=== PATIENT | male | born 1965 | race Caucasian/White ===

== ENCOUNTER → 2017-03-01 | Outpatient (CLI) | payer BC ==
[~2017-03-01] MED LIST: ASPI325T45 PO; AZITTAB PO; GADAVIST IV PRN; HYDR0.75 PO; IBUP-1050 PO; NXM/40 PO
--- NOTE | 2017-03-01 13:39 | DIAGNOSTIC IMAGING REPORT ---
MRI brain BRAIN COMBO FOR IAC CLINICAL HISTORY: *W/IA C'S* BENIGN PAROXYSMAL POSITIONAL VERTIGO TECHNIQUE: Multiaxial MRI acquisition COMPARISON STUDY: 03/14/2015 FINDINGS: No evidence for an acute ischemic event. Minimal chronic small vessel change. Internal auditory canals are symmetric. No abnormal postcontrast enhancement enhancement. Moderate mucosal thickening right maxillary sinus. Sella and parasellar regions are unremarkable. IMPRESSION: 1. Moderate mucosal thickening right maxillary sinus. 2. Examination brain is otherwise negative. 3. The internal auditory canals are unremarkable. Electronically signed by: Rick Alarcon M.D. 03/01/2017 1:38 PM Dictated Date/Time: 03/01/2017 1:28 PM
== END | disposition home or self-care (01) ==
LOC: C.OPENMRI 12:15
PROVIDERS: ATTEND Physician Assistant
DX: H81.10 Benign paroxysmal vertigo, unspecified ear (principal)

== ENCOUNTER 2019-11-16 15:39 | Observation (INO) ==
[2019-11-16] MEDS ORDERED: SODIUM CHLORIDE 0.9% 1000ML 1,000 ML IV SCH (17:15)
[2019-11-16 17:29] LABS: Basophils # (auto) 0.02 K/uL (0-0.2); Basophils % (auto) 0.2 %; Eosinophils # (auto) 0.13 K/uL (0-0.5); Eosinophils % (auto) 1.5 %; Hematocrit (blood only) 44.1 % (42-52); Hemoglobin 15.2 g/dL (14.0-18.0); Immature Granulocytes # (auto) 0.03 K/uL (0.00-0.02); Immature Granulocytes % (auto) 0.3 %; Lymphocytes # (auto) 2.48 K/uL (1.2-3.4); Lymphocytes % (auto) 27.8 %; Mean Corpuscular Hemoglobin 30.3 pg (25-34); Mean Corpuscular Hgb Conc 34.5 g/dL (32-36); Mean Platelet Volume 10.1 fL (7.4-10.4); Monocytes # (auto) 0.49 K/uL (0.11-0.59); Monocytes % (auto) 5.5 %; Neutrophils # (auto) 5.78 K/uL (1.4-6.5); Neutrophils % (auto) 64.7 %; Platelet Count 216 K/uL (130-400); RDW Coefficient of Variation 12.8 % (11.5-14.5); RDW Standard Deviation 40.9 fL (36.4-46.3); Red Blood Count 5.01 M/uL (4.7-6.1); White Blood Count 8.93 K/uL (4.8-10.8)
--- NOTE | 2019-11-16 17:48 | CT Scan Report ---
CT head/brain wo con CLINICAL HISTORY: 54 years-old Male with double vision, ?subtle 6th nerve palsy. Acute double vision TECHNIQUE: Multiple axial CT images of the head were obtained without contrast. A dose lowering tech nique was utilized adhering to the principles of ALARA. CT DOSE: 537.48 mGy.cm COMPARISON: Head CT 05/13/2015 FINDINGS: No acute intracranial hemorrhage, midline shift, intracranial mass, hydrocephalus, territorial ischem ia or abnormal extra-axial collection. The calvarium is intact. Mastoid air cells are clear. Mild mucosal thickening of the nasal turbinate s and ethmoid air cells. IMPRESSION: No acute intracranial abnormality. ACT 112: Negative or not required by law. The above report was generated using voice recognition software. It may contain grammatical, syntax o r spelling errors. Electronically signed by: Antonio Iniguez M.D. 11/16/2019 5:46 PM
[2019-11-16 18:09] LABS: BUN Creatinine Ratio 16.3 (10-20); Creatinine Clr Calc Pharmacy 93.2 ml/min; Est GFR (African American) 84.6; Magnesium 2.4 mg/dl (1.8-2.4); Potassium 3.9 mmol/L (3.5-5.1)
[2019-11-16 18:20] LABS: Albumin Globulin Ratio 1.2 (0.9-2); Bilirubin,Total 0.5 mg/dl (0.2-1); Globulin 3.3 gm/dl (2.5-4.0); Thyroid Stimulating Hormone 1.61 uIu/ml (0.300-4.500); Total Protein 7.3 gm/dl (6.4-8.2)
[2019-11-16] MEDS ORDERED: ASPIRIN CHEW 324 MG PO STA (18:24)
--- NOTE | 2019-11-16 20:25 | History & Physical Report ---
Date of Service November 16, 2019 Assessment & Plan (1) Diplopia: 54 yo M with PMH Claustrophobia, GERD, b/l tinnitis, TIA (5-6 yrs ago), ?PFO presents from PCP office with concerns of L eye diploplia on horizontal movement. Sixth cranial nerve (abducens nerve) palsy -Admit to tele -Head CT: No acute intracranial abnormality -MRI w/wo contrast pending -In adults, the most common causes of sixth nerve palsy include vasculopathic risk factors (eg, HTN, DM), inflammation, trauma, tumors, and idiopathic cases -Other less likely DDx: Restrictive orbitopathy, Orbital myositis, Myasthenia gravis , Supranuclear disorders of gaze, convergence spasm, Sagging eye syndrome -ASA 81 mg daily -intranet specialist referral as an outpt. Appreciate CM assistance -ECHO pending -ESR/CRP to evaluate for potential giant cell arteritis -A1C, Lipid panel in AM -Spontaneous recovery is common in patients with unilateral, isolated, nontraumatic sixth nerve palsy. However, optho can discuss treatment modalities such as alternate patching, prism therapy, strabismus surgery, and/or botulinum toxin if sxs persists Claustrophobia -Buspirone 10 mg prn FEN/GI: HH Diet DVT Prophylaxis: Ambulation. Low Risk. Anticipate short hospitalization. Full Code Dispo: Med Tele. Appreciate CM assistance. History of Present Illness Chief Complaint: L eye diploplia Primary Care Provider: Bushra Rodriguez, DO 54 yo M with PMH Claustrophobia, GERD, b/l tinnitis, TIA (5-6 yrs ago), ?PFO, presents to [facility] by ways of PCP with concerns of diploplia. On 11/14 (Tues AM), pt noted some KELLEY, but no eye sxs. The next day (Wed), he noted some diploplia first noticed when he was driving as the yellow and white road lines appeared doubled in his L visual field. 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 Pt otherwise denies N/V, trauma, ataxia, facial palsy, eye blurriness, discharge, or pain, tunnel vision, worsening vision, blind spots, loss of peripheral vision. Pt only notices the double vision when he looks to the far left, otherwise no other visual distu rbances. Has not recently started any new medications or had dosage changes. Pt with no other acute concerns or complaints. Head CT: No acute intracranial abnormality EKG: NSR. When compared with ECG of 14-JUL-2016, No significant change was found ER Course: PO ASA 324 mg, NSS Labs Unremarkable Family Hx: Cousin/Aunt with DM. Father with stroke 5-6 yrs ago Social: Denies any tobacco or illicit drug use. Social drinker Surgical: arthroscopy of b/l knee, cholecystectomy, wisdom tooth extraction Allergies Allergy/AdvReac Type Severity Reaction Status Date / Time No Known Allergies Allergy Verified 11/16/19 17:32 Home Medications Home Medications Medication Instructions Recorded Confirmed Type buspirone 10 mg PO DAILY PRN 07/03/19 11/16/19 History esomeprazole magnesium 40 mg PO DAILY 07/03/19 11/16/19 History epinephrine [EpiPen 2-Yovani] 0.3 mg IM DIRECTED PRN 11/16/19 11/16/19 History Past Med/Surg History Medical History Claustrophobia GERD (gastroesophageal reflux disease) Heart abnormality pt states he "has a hole in his heart" Migraine Tinnitus of both ears Transient ischemic attack (TIA) 2012--no deficits Surgical History History of arthroscopy of left knee History of arthroscopy of right knee History of cholecystectomy History of colonoscopy History of esophagogastroduodenoscopy (EGD) History of tooth extraction History of wisdom tooth extraction Family History Daughter No problems noted. Father Family history of reaction to anesthesia difficulty waking Aunt Family history of diabetes mellitus Family/Other Family history of diabetes mellitus cousins Social History Preferred Language: Kiswahili Communication Ability: Effective Clinical Project Assistant Required: No Beliefs That Will Affect Care: None Current Living Situation: Spouse Current Living Situation Comment: Lives with and 2 kids Feels Safe at Home: Yes Safety Concerns: Feels Safe At This Time Smoking Status: Never smoker Second Hand Exposure: Yes (parents/grandparents smoked) ; Hx Alcohol Use: Yes Alcohol type: beer Hx Substance Use: No Physical Exam Constitutional: WD/WN, vitals as above Eyes: PERRL Horizontal diplopia with leftward gaze. No obvious gaze palsy when looking to the left. ENMT: external ear and nose normal, oropharynx normal Respiratory: normal respiratory effort, lungs clear to auscultation Cardiovascular: RRR, no murmur, no edema Gastrointestinal (Abdomen): normal bowel sounds, soft, nontender, no hepatosplenomegaly Skin: no rashes, warm and dry Neurologic: No focal deficits Psychiatric: A+Ox3, euthymic affect Results & Data Vital Signs (Past 12 Hours) Vital Signs Temp Pulse Resp BP Pulse Ox 11/16/19 19:31 75 19 96 11/16/19 19:30 66 15 127/100 97 11/16/19 19:01 76 19 99 11/16/19 19:00 72 15 148/108 H 99 11/16/19 18:31 71 18 100 11/16/19 18:30 75 20 158/114 H 98 11/16/19 18:01 71 14 99 11/16/19 18:00 68 16 145/109 H 99 11/16/19 17:51 68 18 98 11/16/19 17:47 68 19 132/102 H 99 11/16/19 16:06 36.8 C 93 H 18 153/103 H 96 Laboratory Results Laboratory Results - last 24 hr 11/16/19 11/16/19 Unknown Unknown WBC 8.93 RBC 5.01 Hgb 15.2 Hct 44.1 MCV 88.0 MCH 30.3 MCHC 34.5 RDW Std Deviation 40.9 RDW Coeff of Leodan 12.8 Plt Count 216 MPV 10.1 Immature Gran % (Auto) 0.3 Neut % (Auto) 64.7 Lymph % (Auto) 27.8 [place] % (Auto) 5.5 Eos % (Auto) 1.5 Baso % (Auto) 0.2 Immature Gran # (Auto) 0.03 H Neut # (Auto) 5.78 Lymph # (Auto) 2.48 [place] # (Auto) 0.49 Eos # (Auto) 0.13 Baso # (Auto) 0.02 Sodium 140 Potassium 3.9 Chloride 109 H Carbon Dioxide 27 Anion Gap 4.0 BUN 19 H Creatinine 1.14 Est Cr Clr Drug Dosing 93.2 Est GFR ( Amer) 84.6 Est GFR (Non-Af Amer) 73.0 BUN/Creatinine Ratio 16.3 Glucose 91 Calcium 9.0 Magnesium 2.4 Total Bilirubin 0.5 AST 16 ALT 27 Alkaline Phosphatase 45 Total Protein 7.3 Albumin 4.0 Globulin 3.3 Albumin/Globulin Ratio 1.2 TSH 1.610 Supervising Physician Co-Signing Physician Notes Patient was seen and examined by me personally. I reviewed the chart, the orders and discussed the case in detail with Dr. Titus Fox DO . I read this H&P and agree with its contents to entirety. Resident Activity Tracking Resident Involvement: Resident Care Provided Care Provided: Adult Hospital Medicine
[2019-11-16] MEDS ORDERED: ALUMINUM/MAGNESIUM SUSP 30 ML UDC PO PRN (22:44)
[2019-11-16] MEDS ORDERED: ACETAMINOPHEN 325 MG TAB PO PRN (22:44)
[2019-11-16] MEDS ORDERED: EPINEPHRINE ADULT AUTO-INJECT 0.3 MG SYR IM PRN (22:44)
[2019-11-16] MEDS ORDERED: ONDANSETRON INJ 2 MG/ML 2 ML VIAL IV PRN (22:44)
[2019-11-16] MEDS ORDERED: LORazepam 1 MG/2 ML VIAL IV STA (22:44)
[2019-11-17] MEDS ORDERED: GADOBUTROL 65ML VIAL IV PRN (00:34)
--- NOTE | 2019-11-17 00:42 | Emergency Department Note ---
Entered by Karie Alfaro acting as a scribe for Ashok Herrera MD History of Present Illness General Chief complaint: Visual Disturbance Stated complaint: DOUBLE VISION SENT BY DR RUIZ Time Seen by Provider: 11/16/19 16:47 Source: patient History of Present Illness Onset (ago): day(s) (yesterday) Location: eyes and left Pain Consistency: + intermittent Quality: + other (double vision) Associated symptoms: + denies other symptoms (trauma) and + headaches; no fever/chills and no nausea/vomiting The patient is a 54 year old male who presents to the Emergency Room with complaints of intermittent double vision in his left eye beginning yesterday. He notes the double vision is side by side. He notes it occurs when he looks too far to the left. The patient reports the double vision is worse in the mornings when driving to the work in the dark. The patient reports he received a formal eye exam yesterday from Dr. Gonzalez at [facility]. 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 He notes his PCP sent him to the ED. The patient notes having a headache two days ago. The patient denies wearing glasses and contact lenses. He denies fever, chills, nausea, vomiting, and trauma. The patient reports a history of a TIA a few years ago. Home Medications Home Medications Medication Instructions Recorded Confirmed Type buspirone 10 mg PO DAILY PRN 07/03/19 11/16/19 History esomeprazole magnesium 40 mg PO DAILY 07/03/19 11/16/19 History epinephrine [EpiPen 2-Yovani] 0.3 mg IM DIRECTED PRN 11/16/19 11/16/19 History Allergies Allergy/AdvReac Type Severity Reaction Status Date / Time No Known Allergies Allergy Verified 11/16/19 17:32 Past Med/Surg History Medical History Claustrophobia GERD (gastroesophageal reflux disease) Heart abnormality pt states he "has a hole in his heart" Migraine Tinnitus of both ears Transient ischemic attack (TIA) 2012--no deficits Surgical History History of arthroscopy of left knee History of arthroscopy of right knee History of cholecystectomy History of colonoscopy History of esophagogastroduodenoscopy (EGD) History of tooth extraction History of wisdom tooth extraction Family History Daughter No problems noted. Father Family history of reaction to anesthesia difficulty waking Aunt Family history of diabetes mellitus Family/Other Family history of diabetes mellitus cousins Social History Preferred Language: Hungarian Communication Ability: Effective Medical Hospital Sales Required: No Beliefs That Will Affect Care: None Current Living Situation: Spouse Current Living Situation Comment: Lives with and 2 kids Feels Safe at Home: Yes Safety Concerns: Feels Safe At This Time Smoking Status: Never smoker Second Hand Exposure: Yes (parents/grandparents smoked) ; Hx Alcohol Use: Yes Alcohol type: beer Hx Substance Use: No Review of Systems See HPI for pertinent positives & negatives. and A total of 10 systems reviewed and were otherwise negative Physical Exam Vital Signs Vital Signs - 24 hr 11/16/19 16:06 11/16/19 17:47 11/16/19 17:51 Temperature 36.8 C Temperature Source Oral Pulse Rate 93 H 68 68 Pulse Rate from SpO2 Sensor 68 68 Pulse Rhythm Regular Pulse Strength Normal Respiratory Rate 18 19 18 Respiratory Effort / Characteristics Non-Labored Spontaneous Respiratory Depth Normal Respiratory Pattern Regular Blood Pressure 153/103 H 132/102 H Blood Pressure Mean 119 117 Blood Pressure Position Sitting Pulse Oximetry 96 99 98 Oxygen Delivery Method Room Air Sepsis Recent Fever Within 48 Hours No Sepsis New/Unexplained Change in Mental Status No Sepsis Action Taken by Nursing No Action Required 11/16/19 18:00 11/16/19 18:01 11/16/19 18:30 Temperature Temperature Source Pulse Rate 68 71 75 Pulse Rate from SpO2 Sensor 69 72 75 Pulse Rhythm Pulse Strength Respiratory Rate 16 14 20 Respiratory Effort / Characteristics Respiratory Depth Respiratory Pattern Blood Pressure 145/109 H 158/114 H Blood Pressure Mean 114 119 Blood Pressure Position Pulse Oximetry 99 99 98 Oxygen Delivery Method Sepsis Recent Fever Within 48 Hours Sepsis New/Unexplained Change in Mental Status Sepsis Action Taken by Nursing 11/16/19 18:31 11/16/19 19:00 11/16/19 19:01 Temperature Temperature Source Pulse Rate 71 72 76 Pulse Rate from SpO2 Sensor 70 70 75 Pulse Rhythm Pulse Strength Respiratory Rate 18 15 19 Respiratory Effort / Characteristics Respiratory Depth Respiratory Pattern Blood Pressure 148/108 H Blood Pressure Mean 118 Blood Pressure Position Pulse Oximetry 100 99 99 Oxygen Delivery Method Sepsis Recent Fever Within 48 Hours Sepsis New/Unexplained Change in Mental Status Sepsis Action Taken by Nursing 11/16/19 19:30 11/16/19 19:31 11/16/19 20:00 Temperature Temperature Source Pulse Rate 66 75 71 Pulse Rate from SpO2 Sensor 68 75 70 Pulse Rhythm Pulse Strength Respiratory Rate 15 19 21 Respiratory Effort / Characteristics Respiratory Depth Respiratory Pattern Blood Pressure 127/100 133/106 H Blood Pressure Mean 108 112 Blood Pressure Position Pulse Oximetry 97 96 97 Oxygen Delivery Method Sepsis Recent Fever Within 48 Hours Sepsis New/Unexplained Change in Mental Status Sepsis Action Taken by Nursing 11/16/19 20:01 11/16/19 20:30 11/16/19 20:31 Temperature Temperature Source Pulse Rate 73 71 70 Pulse Rate from SpO2 Sensor 74 72 72 Pulse Rhythm Pulse Strength Respiratory Rate 18 24 19 Respiratory Effort / Characteristics Respiratory Depth Respiratory Pattern Blood Pressure 133/94 Blood Pressure Mean 98 Blood Pressure Position Pulse Oximetry 97 96 97 Oxygen Delivery Method Sepsis Recent Fever Within 48 Hours Sepsis New/Unexplained Change in Mental Status Sepsis Action Taken by Nursing GENERAL: Well appearing, well nourished, NAD, non-toxic. EYE EXAM: Normal conjunctiva. PERRL, no anisocoria and EOM's grossly intact w/o pain. Horizontal diplopia with leftward gaze. No obvious gaze palsy when looking to the left. No vision field deficits. Vision 20/25 on right; 20/20 on left. OROPHARYNX: Moist mucous membranes. Grossly normal dentition. NECK: Supple, no nuchal rigidity, no adenopathy, non-tender. No signs of meningismus. LUNGS: Clear to auscultation. Normal chest wall mechanics. HEART: NSR, no MRG. ABDOMEN: Abdomen soft, non-tender, normo-active bowel sounds, no masses, no rebound or guarding. BACK: No CVA TTP. SKIN: No rashes and no bruising. UPPER EXTREMITIES: Upper extremities are grossly normal. LOWER EXTREMITIES: No pitting edema. No calf pain. NEURO EXAM: A&O x3, cranial nerves II-XII grossly intact, normal speech, , moves all 4 extremities on command w/o issue. Course Course 165: Past medical records reviewed. The patient was evaluated in room B05. A complete history and physical exam was performed. 1706: I tried to contact Dr. Gonzalez however he was not available. 1740: I spoke with Dr. Alexandra - [facility] Neurology who recommends the patient stay in the hospital for a stroke workup. 1830: I reviewed the patient's case with Dr. Ya - [facility] Hospitalist. She will evaluate the patient for further management. Administered Medications Gadobutrol (Gadavist 65ml) 11.1 ml IV ONCE PRN PRN Reason: Interaction Checking Stop: 11/21/19 00:33 Last Admin: 11/17/19 00:07 Dose: 11.1 ml Documented by: [id number] Discontinued Medications Aspirin (Aspirin) 324 mg PO NOW STA Stop: 11/16/19 18:25 Last Admin: 11/16/19 18:27 Dose: 324 mg Documented by: [id number] Sodium Chloride (Nss 1000ml) 1,000 mls @ 999 mls/hr IV .Q1H1M JB Stop: 11/16/19 18:15 Last Infusion: 11/16/19 18:19 Dose: 0 mls/hr Documented by: [id number] Admin: 11/16/19 17:18 Dose: 999 mls/hr Documented by: [id number] Lorazepam (Ativan) 1 mg in 2 mls @ 2 mls/min IV NOW STA Stop: 11/16/19 22:45 Last Admin: 11/16/19 23:21 Dose: 2 mls/min Documented by: [id number] Medical Decision Making Differential Diagnosis Differential diagnosis: hyperglycemia, metabolic abnormalities, neuropathy, stroke, arteriostenosis Medical Records Attestation: I reviewed the patient's medical records. Home Medications Current Medication List: was personally reviewed by me Laboratory Data Attestation: I reviewed the patient's lab results. Result diagrams: 11/16/19 Unknown 11/16/19 Unknown Lab Results 11/16/19 11/16/19 Range/Units Unknown Unknown WBC 8.93 (4.8-10.8) K/uL RBC 5.01 (4.7-6.1) M/uL Hgb 15.2 (14.0-18.0) g/dL Hct 44.1 (42-52) % MCV 88.0 (80-100) fL MCH 30.3 (25-34) pg MCHC 34.5 (32-36) g/dL RDW Std Deviation 40.9 (36.4-46.3) fL RDW Coeff of Leodan 12.8 (11.5-14.5) % Plt Count 216 (130-400) K/uL MPV 10.1 (7.4-10.4) fL Immature Gran % (Auto) 0.3 % Neut % (Auto) 64.7 % Lymph % (Auto) 27.8 % [place] % (Auto) 5.5 % Eos % (Auto) 1.5 % Baso % (Auto) 0.2 % Immature Gran # (Auto) 0.03 H (0.00-0.02) K/uL Neut # (Auto) 5.78 (1.4-6.5) K/uL Lymph # (Auto) 2.48 (1.2-3.4) K/uL [place] # (Auto) 0.49 (0.11-0.59) K/uL Eos # (Auto) 0.13 (0-0.5) K/uL Baso # (Auto) 0.02 (0-0.2) K/uL Sodium 140 (136-145) mmol/L Potassium 3.9 (3.5-5.1) mmol/L Chloride 109 H (98-107) mmol/L Carbon Dioxide 27 (21-32) mmol/L Anion Gap 4.0 (3-11) BUN 19 H (7-18) mg/dl Creatinine 1.14 (0.6-1.4) mg/dl Est Cr Clr Drug Dosing 93.2 ml/min Est GFR ( Amer) 84.6 Est GFR (Non-Af Amer) 73.0 BUN/Creatinine Ratio 16.3 (10-20) Glucose 91 (70-99) mg/dl Calcium 9.0 (8.5-10.1) mg/dl Magnesium 2.4 (1.8-2.4) mg/dl Total Bilirubin 0.5 (0.2-1) mg/dl AST 16 (15-37) U/L ALT 27 (12-78) U/L Alkaline Phosphatase 45 (45-117) U/L Total Protein 7.3 (6.4-8.2) gm/dl Albumin 4.0 (3.4-5.0) gm/dl Globulin 3.3 (2.5-4.0) gm/dl Albumin/Globulin Ratio 1.2 (0.9-2) TSH 1.610 (0.300-4.500) uIu/ml Imaging Data Radiologist's Impression: Radiology results as stated below per my review and the radiologist's interpretation: CT head/brain wo con CLINICAL HISTORY: 54 years-old Male with double vision, ?subtle 6th nerve palsy. Acute double vision TECHNIQUE: Multiple axial CT images of the head were obtained without contrast. A dose lowering technique was utilized adhering to the principles of ALARA. CT DOSE: 537.48 mGy.cm COMPARISON: Head CT 05/13/2015 FINDINGS: No acute intracranial hemorrhage, midline shift, intracranial mass, hydrocephalus, territorial ischemia or abnormal extra-axial collection. The calvarium is intact. Mastoid air cells are clear. Mild mucosal thickening of the nasal turbinates and ethmoid air cells. IMPRESSION: No acute intracranial abnormality. ACT 112: Negative or not required by law. The above report was generated using voice recognition software. It may contain grammatical, syntax or spelling errors. Electronically signed by: Antonio Iniguez M.D. 11/16/2019 5:46 PM ECG Data Attestation: I personally reviewed and interpreted this ECG as follows: Indication: + other (stroke workup) Rate (beats per minute): 69 Rhythm: + normal sinus ECG [place]: + Normal ECG Findings: + Other (normal intervals; no ST changes); no PACs and no PVCs Blood Pressure Blood Pressure Findings: Elevated blood pressure Blood Pressure Disposition: further management by hospitalist [facility] Narrative The patient is a 54 year old male who presents to the Emergency Room with complaints of intermittent double vision in his left eye beginning yesterday. Patient was seen and evaluated the bedside. Patient was referred due to concern for double vision. The patient does complain of horizontal diplopia. This is only when looking to the left. There is no obvious 6th nerve palsy but likely etiology. The patient does not have any other focal findings on exam. Patient did have blood work completed along with an EKG. No signs of arrhythmia or A. fib. Blood work is unremarkable. Patient has normal blood glucose. I did attempt to speak with the patient's eye doctor who had done an exam yesterday. I was unable to reach him. Patient does not have any anisocoria no APD and the patient has no visual field deficits. Patient's gross vision is otherwise intact and is 2024 in the right and 20/20 on the left. I did speak with the on- call neurologist who recommended a more detailed and thorough stroke work-up. Patient was given 324 of aspirin I did speak the on-call hospitalist agreed to further evaluate treat the patient. Patient was subsequently admitted to the medicine service. Impression & Plan Abducens (sixth) nerve palsy, Double vision, History of TIA (transient ischemic attack) Discharge Plan Visit Data *Final* Discharge Date/Time: 11/16/19 22:17 Chief Complaint: Visual Disturbance Stated Complaint: DOUBLE VISION SENT BY DR RUIZ ED Provider: Ashok Herrera Discharge Problem: Abducens (sixth) nerve palsy, Double vision, History of TIA (transient ischemic attack) Patient Disposition: Admitted As Inpatient Discharge Instructions Interventions: ED Discharge Assessment Last Done: 11/16/19 22:17 Discharge Problem: Abducens (sixth) nerve palsy Qualifiers: Laterality: left Qualified Code(s): H49.22 - Sixth [abducent] nerve palsy, left eye The scribe's documentation has been prepared under my direction and personally reviewed by me in its entirety. I confirm that the note above accurately reflects all work, treatment, procedures, and medical decision making performed by me.
--- NOTE | 2019-11-17 03:50 | Billing Data ---
Date of Service November 16, 2019 Coding Level of Care Code 62527 OBS Care - Level 2
--- NOTE | 2019-11-17 06:19 | Magnetic Resonance Report ---
MR brain wo/w con CLINICAL HISTORY: 6th nerve palsy, r/o masses COMPARISON STUDY: No previous studies for comparison. TECHNIQUE: Utilizing a 1.5 Katrin magnet and dedicated coil, multiplanar, multiecho imaging of the br ain was performed pre and postcontrast administration. IV administration of a mL of Gadavist contras t was uneventful. FINDINGS: Diffusion-weighted images are normal. Signal characteristics of the cerebellar as well as c erebral hemispheres are within normal limits. Ventricular system is midline. No abnormal postcontrast enhancement. IMPRESSION: Normal study. No change from the prior exam. ACT 112: Negative or not required by law. The above report was generated using voice recognition software. It may contain grammatical, syntax or spelling errors. Electronically signed by: Rick Alarcon M.D. 11/17/2019 6:18 AM
[2019-11-17 06:29] LABS: Basophils # (auto) 0.02 K/uL (0-0.2); Basophils % (auto) 0.3 %; Eosinophils # (auto) 0.17 K/uL (0-0.5); Eosinophils % (auto) 2.2 %; Hematocrit (blood only) 40.8 % (42-52); Hemoglobin 14.1 g/dL (14.0-18.0); Immature Granulocytes # (auto) 0.04 K/uL (0.00-0.02); Immature Granulocytes % (auto) 0.5 %; Lymphocytes # (auto) 2.05 K/uL (1.2-3.4); Lymphocytes % (auto) 26.3 %; Mean Corpuscular Hemoglobin 30.6 pg (25-34); Mean Corpuscular Hgb Conc 34.6 g/dL (32-36); Mean Corpuscular Volume 88.5 fL (80-100); Monocytes % (auto) 7.7 %; Neutrophils # (auto) 4.91 K/uL (1.4-6.5); Platelet Count 187 K/uL (130-400); RDW Coefficient of Variation 12.9 % (11.5-14.5); Red Blood Count 4.61 M/uL (4.7-6.1); White Blood Count 7.79 K/uL (4.8-10.8)
[2019-11-17 07:00] LABS: BUN Creatinine Ratio 16.4 (10-20); Calcium 8.3 mg/dl (8.5-10.1); Creatinine Clr Calc Pharmacy 99.4 ml/min; Est GFR (African American) 93.5; Est GFR (Non-African American) 80.7
[2019-11-17 07:02] LABS: Estimated Average Glucose 105 mg/dl; Hemoglobin A1C 5.3 % (4.5-5.6)
[2019-11-17 07:03] LABS: C Reactive Protein 0.62 mg/dl (0-0.29)
[2019-11-17] MEDS ORDERED: PANTOprazole 40 MG TAB PO SCH (09:00)
[2019-11-17] MEDS ORDERED: ASPIRIN 81 MG ECTAB PO SCH (09:00)
[2019-11-17] MEDS ORDERED: OPTIRAY 320 125ml IV PRN (09:34)
--- NOTE | 2019-11-17 09:52 | CT Scan Report ---
CT ANGIOGRAM OF THE BRAIN; CT ANGIOGRAM OF THE NECK CLINICAL HISTORY: Left-sided diplopia. COMPARISON STUDY: CT and MRI of the brain dated 11/16/2019. TECHNIQUE: Following the IV administration of 119 of Optiray 320, CT angiogram of the head and neck w as performed from the aortic arch to the vertex. Images are reviewed in the axial, sagittal, and sebastian nal planes. 3-D MIPS images are created and assessed. IV contrast was administered without complicati on. All measurements were calculated based on NASCET criteria. A dose lowering technique was utilize d adhering to the principles of ALARA. CT DOSE: 655.88 mGy.cm FINDINGS: Brain parenchyma: The brain parenchyma is normal in appearance. There is no hemorrhage, mass effect, or evidence of acute territorial ischemia by CT criteria. There is no evidence of enhancing mass lesi on on the angiogram phase images. The ventricles, sulci, and cisterns are normal in configuration. Gr ay-white matter differentiation is preserved. No extra-axial fluid collection is seen. Thoracic aorta: Visualized portions of the thoracic aorta are normal in caliber. The aortic arch demo nstrates standard 3-vessel anatomy. Right carotid arterial system: The right common carotid artery is widely patent, as are the right int ernal and external carotid arteries. Mild plaque is noted in the carotid bulb. Left carotid arterial system: The left common carotid artery is widely patent, as are the left customer marketing intern al and external carotid arteries. Soft plaque is noted in the distal common carotid artery as well as the carotid bulb. Vertebral arteries: The vertebral arteries are patent bilaterally noting left-sided dominance. Subclavian arteries: Widely patent bilaterally. Intracranial vasculature: The internal carotid arteries are patent at the skull base, as are the ante rior and middle cerebral arteries bilaterally. The vertebrobasilar system and posterior cerebral daisy prasanna are widely patent. The left vertebral artery is dominant. The right vertebral artery terminates as the PICA. There is no aneurysm, high-grade stenosis, or focal vessel cut off seen throughout the i ntracranial circulation. Jugular veins: Patent bilaterally. Dural sinuses: Patent. Lung apices: Partially visualized upper lobe lung parenchyma appears clear. Soft tissues: The visualized pharyngeal soft tissues are normal in appearance noting angiographic pha se technique. The oropharyngeal airway appears widely patent. The salivary and thyroid glands are nor mal in appearance. No cervical lymphadenopathy is seen. Skeletal structures: The calvarium appears intact. The cervical spine is maintained noting multilevel spondylosis. No lytic or blastic lesion is seen. Sinuses and mastoids: There are tiny retention cysts in the maxillary antra which measure up to 10 mm . The paranasal sinuses are otherwise clear. The mastoid air cells are well pneumatized. IMPRESSION: 1. There is no hemorrhage, mass effect, or evidence of acute territorial ischemia by CT criteria noti ng angiographic phase technique. 2. Unremarkable CT angiogram of the brain. 3. Unremarkable CT angiogram of the neck. ACT 112: Negative or not required by law. Electronically signed by: Torsten Tillman M.D. 11/17/2019 9:50 AM
--- NOTE | 2019-11-17 10:34 | Discharge Summary ---
Date of Service November 17, 2019 Admission HPI Per Admitting Provider 54 yo M with PMH Claustrophobia, GERD, b/l tinnitis, TIA (5-6 yrs ago), ?PFO, presents to [facility] by ways of PCP with concerns of diploplia. On 11/14 (Tues AM), pt noted some KELLEY, but no eye sxs. The next day (Wed), he noted some diploplia first noticed when he was driving as the yellow and white road lines appeared doubled in his L visual field. He went to his resolute professional who referred him to his PCP, whom he say today and was referred to the ER. Pt otherwise denies N/V, trauma, ataxia, facial palsy, eye blurriness, discharge, or pain, tunnel vision, worsening vision, blind spots, loss of peripheral vision. Pt only notices the double vision when he looks to the far left, otherwise no other visual disturbances. Has not recently started any new medications or had dosage changes. Pt with no other acute concerns or complaints. Head CT: No acute intracranial abnormality EKG: NSR. When compared with ECG of 14-JUL-2016, No significant change was found ER Course: PO ASA 324 mg, NSS Labs Unremarkable Family Hx: Cousin/Aunt with DM. Father with stroke 5-6 yrs ago Social: Denies any tobacco or illicit drug use. Social drinker Surgical: arthroscopy of b/l knee, cholecystectomy, wisdom tooth extraction Admission Exam Per Admitting Provider Constitutional: WD/WN, vitals as above Eyes: PERRL Horizontal diplopia with leftward gaze. No obvious gaze palsy when looking to the left. ENMT: external ear and nose normal, oropharynx normal Respiratory: normal respiratory effort, lungs clear to auscultation Cardiovascular: RRR, no murmur, no edema Gastrointestinal (Abdomen): normal bowel sounds, soft, nontender, no hepatosplenomegaly Skin: no rashes, warm and dry Neurologic: No focal deficits Psychiatric: A+Ox3, euthymic affect Principal Diagnosis L sided diplopia Discharge Exam Constitutional WD/WN, vitals as above + obese Eyes PERRL, conjunctivae normal, anicteric sclerae normal visual wing by confrontation, normal accommodation and EOM intact bilaterally (movements not painful); no nystagmus and no photophobia No ptosis. No extraorbital swelling or erythema. No eye discharge. +Diplopia reported in L left with L horizontal gaze ENMT external ear and nose normal, oropharynx normal Neck normal visual inspection and trachea midline Respiratory normal respiratory effort, lungs clear to auscultation Cardiovascular RRR, no murmur, no edema Heart Sounds: normal S1 and normal S2 Skin no rashes, warm and dry Neurologic moves all extremities; no focal motor deficits Speech / Cognition: normal speech Motor/Sensory: no tremor and no pronator drift Cranial Nerves: normal facial strength, tongue midline, normal hearing, able to rotate head bilaterally and able to elevate shoulders bilaterally Psychiatric A+Ox3, euthymic affect Discharge Data Allergies Allergy/AdvReac Type Severity Reaction Status Date / Time No Known Allergies Allergy Verified 11/16/19 17:32 Consultations 11/16/19 18:42 ED Decision to Admit Stat 11/16/19 22:44 Consult Case Management - Discharge Planning Routine Ordered Studies 11/16/19 17:01 CT head/brain wo con Stat 11/16/19 22:44 MR brain wo/w con Urgent 11/17/19 08:50 CT angio head w con Routine CT angio neck with con Routine Hospital Course (1) Diplopia: 54 yo M with PMHx TIA (5-6 yrs ago) was admitted for evaluation of L eye diplopia with L horizontal gaze. Mr. Ramirez was admitted for evaluation of L eye diplopia with horizontal gaze to the L that began one day prior to admission. The diplopia was preceded by a headache that self-resolved, however the diplopia persisted when provoked with L horizontal gaze throughout his hospital stay. Mr. Ramirez does report a history of migraine headaches, but denies associated visual aura. He had no other associated neurologic symptoms with the unilateral diplopia. Given his history of TIA and a new neurologic symptom, a full stroke work up was done. Head CT was negative. Brain MRI with and without contrast was unremarkable. CTA of head and neck was unremarkable. Echocardiogram obtained, read pending at discharge. HbA1c was 5.3. Lipid panel: total chol 166, LDL 114, HDL 36, ratio of 5. We recommend ed Mr. Ramirez start statin therapy, but he declined. Alternatively, he was interested in taking supplements of red yeast rice, which is known to have the same lipid lowering properties of statins. He does take a daily baby aspirin, which we recommend he continue. An ESR was drawn to assess for possible giant cell arteritis, but was normal at 2. CRP was mildly elevated at 0.62. Lyme titers pending at time of discharge. Hospital showcase trimmer were able to arrange an outpatient visit with ops manager Dr. Alejandro Rick at [facility] at 2:00pm on the day of discharge. Outpatient items to do: Repeat lipid panel in 6 months. Follow up on Echo results. Total Time Total Time Spent Total Time Spent (In Minutes): see attending attestation Discharge Plan Discharge Items Patient Disposition: Home - Self-Care Reason For Visit: 6 CN PALSY Discharge Diagnosis: Left eye diplopia Activity: Resume your previous activity Non-emergency contact: Primary Care Provider and Survey Project Manager Call non-emergency contact if: your symptoms worsen Follow-up/Referrals: Bushra Rodriguez DO [Primary Care Provider] - 11/23/19 7:50 am (Please, follow up with Dr. Rodriguez on November 23 at 7:50 am. *If you need to change this appointment, call the office at [phone].) Alejandro Rick MD [Physician] - 11/17/19 2:00 pm ([facility] Please, follow up with Dr. Blackmon TODAY at 2:00 pm. *If you have any questions, call his office at [phone].) Diet: Heart Healthy Addtl Attending Provider Instructions: You were hospitalized at [facility] for evaluation of double vision in your L eye when looking to the left. We were concerned that this sy mptom could represent a stroke - however the tests we ordered showed no evidence of stroke. The tests ordered included a cat scan of the head, a brain MRI, a CT-angiogram, which visualizes the blood vessels in the head and neck, an echocardiogram, or ultrasound of your heart. Although we did not find an explanation for your double vision, we have ruled out stroke as a possible cause. We recommend you see Dr. Alejandro Rick (ops manager) at [facility] for follow up care. Risk factors for stroke include high blood pressure, high cholesterol, high blood sugar, and tobacco use. Your blood pressure was only mildly elevated during your hospital stay. Your blood sugar was normal. Your cholesterol panel was also high. We recommended you start a medication known as a "statin" to help lower your cholesterol, but you declined this medication. As an alternative you can take supplements of red yeast rice, which can help lower your cholesterol. Low fat diet and regular exercise can also improve your blood pressure and your cholesterol level. you should have your cholesterol level rechecked by our primary care doctor in 3-6 months. Please continue to abstain from tobacco use. Pending Studies at Discharge: Yes Studies:: Lyme titers Stand-Alone Forms: My [facility] [employer], Smoking Cessation Medications and DC Order Prescriptions: Continued epinephrine [EpiPen 2-Yovani] 0.3 mg/0.3 mL auto-injector 0.3 mg IM DIRECTED PRN (Reason: Anaphylaxis) RF: 0 esomeprazole magnesium 40 mg capsule,delayed release(DR/EC) 40 mg PO DAILY RF: 0 buspirone 10 mg tablet 10 mg PO DAILY PRN (Reason: Anxiety) RF: 0 Discharge Orders: Discharge Order (Routine); Ordered 11/17/19 Ordered By: Lula Albarran Admission Data Admit Date/Time: 11/16/19 20:46 Attending Provider: Raisa Carballo Admit Provider: Titus Fox Primary Care Provider: Bushra Rodriguez Other Providers: Merna Ya Keith D. Other Interventions: Discharge Summary Assessment (RN) Last Done: 11/17/19 10:56 DC Date/Time DO NOT enter until pt leaves facility: 11/17/19 12:56 Supervising Physician Co-Signing Physician Notes Resident Physician Supervision Note: I independently interviewed and examined the patient and verified the sanchez history and physical, reviewed labs and image studies, discussed the case with the resident Dr. Albarran and agree with the findings and care plan. Time spent in discharge 35 min Resident Activity Tracking Resident Involvement: Resident Care Provided Care Provided: Adult Hospital Medicine
[2019-11-17 11:24] LABS: Lyme Ab IgG w/WB Rflx Negative (Negative); Lyme Ab IgM w/WB Rflx Negative (Negative)
--- NOTE | 2019-11-17 11:24 | Electrocardiogram Report ---
Test Reason : Blood Pressure : / mmHG Vent. Rate : 069 BPM Atrial Rate : 069 BPM P-R Int : 172 ms QRS Dur : 092 ms QT Int : 384 ms P-R-T Axes : 048 053 029 degrees QTc Int : 411 ms Normal sinus rhythm Normal ECG When compared with ECG of 14-JUL-2016 07:37, No significant change was found Confirmed by Aj Schmidt ([id number]) on 11/17/2019 11:23:38 AM Referred By: Bushra Rodriguez Confirmed By:Aj Schmidt
== END 2019-11-17 12:56 | disposition home or self-care (01) ==
LOC: ED 15:39 → 2S 15:39 → SUATTDRO 20:46 → 2S 22:17

== ENCOUNTER 2021-11-07 17:31 | Inpatient (IN) ==
[2021-11-07] MEDS ORDERED: SODIUM CHLORIDE 0.9% 1000ML 1,000 ML IV ONE (17:38)
--- NOTE | 2021-11-07 17:41 | Emergency Department Note ---
Impression & Plan COVID, Breath shortness, Thrombocytopenia ED Provider Note NAME: LIEN GAY AGE: 56 SEX: M : 1965 ARRIVES VIA: Ambulance INFORMANT: Patient ED PROVIDER(S): Darek Holcomb DO CHIEF COMPLAINT: Upper respiratory symptoms HPI: Patient is a 55-year-old male who symptoms started about a week ago with cough, congestion, and headache. He has intermittent chills. He does admit to shortness of breath. He has pain in his belly only with coughing. Denies any other belly pain, nausea, vomiting, or diarrhea. No dysuria, urgency, or frequency. He notes he feels very dehydrated. He has not been around anyone that has been sick. He denies any other exacerbating or remitting factors ROS: See above HPI for pertinent positives & negatives. A total of 10 systems reviewed and were otherwise negative. PAST MEDICAL HISTORY:See Below PAST SURGICAL HISTORY:See Below FAMILY HISTORY:See Below SOCIAL HISTORY:See Below HOME MEDICATIONS:See Below ALLERGIES:See Below VITALS:See Below PHYSICAL EXAMINATION: GENERAL: Sitting up in bed, alert, chronically ill-appearing, disheveled EYE EXAM: normal conjunctiva. OROPHARYNX: no exudate, no erythema, lips, buccal mucosa, and tongue normal and mucous membranes are moist NECK: supple, no nuchal rigidity, no adenopathy, non-tender LUNGS: Clear to auscultation. Normal chest wall mechanics HEART: no murmurs, S1 normal and S2 normal ABDOMEN: abdomen soft, non-tender, normo-active bowel sounds, no masses, no rebound or guarding. UPPER EXTREMITIES: upper extremities are grossly normal. LOWER EXTREMITIES: No pitting edema. NEURO EXAM: Normal sensorium, cranial nerves II-XII grossly intact, normal speech, no gross weakness of arms, no gross weakness of legs. MEDICAL DECISION MAKING: Patient is a 56-year-old male who presents ER found be febrile, tachycardic and slightly hypoxic. He was hypoxic for EMS at 87% on room air. Upon arrival here he dipped into 88 on room air with movement from bed to bed but then this increased back to 92 to 93%. IV was established blood work was obtained. Labs show no significant leukocytosis or anemia. Mild thrombocytopenia at 121. BMP LFTs bilirubin was unremarkable. Troponin was negative. Lipase was unremarkable. Patient was Covid positive. Chest x-ray with subtle infiltrates at the bases. He was given Decadron and fluids. He was updated bedside. He was given Tylenol. Discussed with hospitalist admitted for further work-up. Triage Nursing notes reviewed. Limited review of prior medical records performed Vital Signs: reviewed and remarkable for no significant abnormalities Differential diagnosis: Differential diagnoses includes but is not limited to pneumonia, bronchitis, COPD/Asthma exacerbation, pneumothorax, pulmonary embolism, congestive heart failure, acute coronary syndrome ER treatment provided: See below Diagnostics interpreted by me: ECG: Sinus tachycardia rate 107 Normal axis No PVCs Nonspecific ST wave changes in V2 through V6 QTC prolonged at 656 Cardiac Monitoring: An order was placed for continuous cardiac monitoring. The monitor shows a rate of 105 with sinus rhythm. Laboratory studies: As stated above and show below. Imaging studies: Portable AP upright 1 view of the chest shows questionable patchy infiltrates bilaterally Consultation(s): Discussed with hospitalist for further evaluation Procedures: none Past Med/Surg History Medical History (Updated 11/07/21 @ 19:49 by Darek Holcomb DO) Claustrophobia GERD (gastroesophageal reflux disease) Heart abnormality pt states he "has a hole in his heart" Migraine Tinnitus of both ears Transient ischemic attack (TIA) 2012--no deficits Surgical History History of arthroscopy of left knee History of arthroscopy of right knee History of cholecystectomy History of colonoscopy History of esophagogastroduodenoscopy (EGD) History of tooth extraction History of wisdom tooth extraction Family History Daughter No problems noted. Father Family history of reaction to anesthesia difficulty waking Aunt Family history of diabetes mellitus Family/Other Family history of diabetes mellitus cousins Social History Smoking Status: Never smoker Second Hand Exposure: Yes (parents/grandparents smoked); Hx Alcohol Use: Yes Alcohol type: beer Hx Substance Use: No Preferred Language: Tamazight Communication Ability: Effective Sap Ppm Consultant Required: No Beliefs That Will Affect Care: None Current Living Situation: Spouse Current Living Situation Comment: Lives with and 2 kids Feels Safe at Home: Yes Assistive Devices: Glasses Allergies Allergies Allergy/AdvReac Type Severity Reaction Status Date / Time No Known Allergies Allergy Verified 11/07/21 18:37 Home Meds Home Medications Medication Instructions Recorded Confirmed esomeprazole magnesium 40 mg 40 mg PO [facility] 07/03/19 11/07/21 capsule,delayed release epinephrine 0.3 mg/0.3 mL 0.3 mg IM DIRECTED PRN 11/16/19 11/07/21 injection, auto-injector (EpiPen 2-Yovani) escitalopram oxalate 20 mg tablet 10 mg PO [facility] 11/07/21 11/07/21 ketoconazole 2 % topical cream 1 applic TOPICAL [facility] 11/07/21 11/07/21 terbinafine HCl 250 mg tablet 250 mg PO [facility] 11/07/21 11/07/21 Results & Data (ED) Vital Signs Vital Signs - 24 hr 11/07/21 17:38 11/07/21 18:00 11/07/21 18:30 Temperature 38.9 C H Temperature Source Oral Pulse Rate 112 H 112 H 101 H Pulse Rate from SpO2 Sensor 112 H 100 H Respiratory Rate 22 Blood Pressure 186/119 H 128/87 Blood Pressure Mean 141 100 Pulse Oximetry 91 92 94 Oxygen Delivery Method Room Air Room Air Room Air Sepsis Recent Fever Within 48 Hours Yes Sepsis New/Unexplained Change in Mental Status No Sepsis Action Taken by Nursing Physician Notified Laboratory Data Result diagrams: 11/07/21 17:40 11/07/21 17:40 Lab Results 11/07/21 11/07/21 11/07/21 Range/Units 17:38 17:40 17:40 WBC 6.15 (4.8-10.8) K/uL RBC 5.02 (4.7-6.1) M/uL Hgb 14.9 (14.0-18.0) g/dL Hct 43.9 (42-52) % MCV 87.5 (80-100) fL MCH 29.7 (25-34) pg MCHC 33.9 (32-36) g/dL RDW Std Deviation 42.6 (36.4-46.3) fL RDW Coeff of Leodan 13.3 (11.5-14.5) % Plt Count 121 L (130-400) K/uL MPV 11.0 H (7.4-10.4) fL Immature Gran % (Auto) 0.3 % Neut % (Auto) 79.0 % Lymph % (Auto) 14.8 % Treasure % (Auto) 5.9 % Eos % (Auto) 0.0 % Baso % (Auto) 0.0 % Neut # (Auto) 4.86 (1.4-6.5) K/uL Lymph # (Auto) 0.91 L (1.2-3.4) K/uL Treasure # (Auto) 0.36 (0.11-0.59) K/uL Eos # (Auto) 0.00 (0-0.5) K/uL Baso # (Auto) 0.00 (0-0.2) K/uL Immature Gran # (Auto) 0.02 (0.00-0.02) K/uL Sodium 137 (136-145) mmol/L Potassium 3.7 (3.5-5.1) mmol/L Chloride 104 (98-107) mmol/L Carbon Dioxide 27 (21-32) mmol/L Anion Gap 6.0 (3-11) BUN 18 (7-18) mg/dl Creatinine 1.23 (0.6-1.4) mg/dl Est Cr Clr Drug Dosing 86.3 ml/min Est GFR ( Amer) 76.1 ml/min Est GFR (Non-Af Amer) 65.7 ml/min BUN/Creatinine Ratio 15.0 (10-20) Glucose 159 H (70-99) mg/dl Calcium 8.8 (8.5-10.1) mg/dl Total Bilirubin 0.8 (0.2-1) mg/dl AST 34 (15-37) U/L ALT 40 (12-78) Alkaline Phosphatase 54 (45-117) U/L Troponin I < 0.015 (0-0.045) ng/ml Total Protein 7.1 (6.4-8.2) gm/dl Albumin 3.2 L (3.4-5.0) gm/dl Globulin 3.9 (2.5-4.0) gm/dl Albumin/Globulin Ratio 0.8 L (0.9-2) Lipase 110 (73-393) U/L SARS-CoV-2, RNA, NAAT POSITIVE A* (NEGATIVE) Administered Medications Discontinued Medications Acetaminophen (Acetaminophen 500 Mg Tab) 1,000 mg PO NOW STA Stop: 11/07/21 18:25 Last Admin: 01/07/22 18:36 Dose: 1,000 mg Documented by: [id number] Sodium Chloride (Nss 1000ml) 1,000 mls @ 999 mls/hr IV .Q1H1M ONE Stop: 11/07/21 18:38 Last Admin: 11/07/21 19:15 Dose: 999 mls/hr Documented by: [id number] Imaging Data Radiologist's Impression: Chest X-Ray 11/07/21 17:37 XR chest 1V portable HISTORY: Atypical Chest Pain COMPARISON: Chest 05/18/2014. FINDINGS: There are low lung volumes. The heart remains mildly enlarged. No focal lung consolidations to suggest pneumonia. No evidence for pulmonary edema. No pleural effusions. No pneumothorax. IMPRESSION: No significant change compared to the prior study. No acute process. ACT 112: Negative or not required by law. Electronically signed by: Rm Dewey M.D. 11/07/2021 6:05 PM Discharge Plan Visit Data Chief Complaint: Illness ED Provider: Darek Holcomb Discharge Problem: COVID, Breath shortness, Thrombocytopenia Forms Stand Alone Forms: [facility] Prescriptions Prescriptions: No Action epinephrine [EpiPen 2-Yovani] 0.3 mg/0.3 mL auto-injector 0.3 mg IM DIRECTED PRN (Reason: Anaphylaxis) RF: 0 esomeprazole magnesium 40 mg capsule,delayed release(DR/EC) 40 mg PO QAM RF: 0 terbinafine HCl 250 mg tablet 250 mg PO QAM RF: 0 ketoconazole 2 % cream 1 applic TOPICAL QAM RF: 0 escitalopram oxalate 20 mg tablet 10 mg PO QAM RF: 0 Referrals Referrals: Bushra Rodriguez, [Primary Care Provider] -
[2021-11-07 17:50] LABS: Hematocrit (blood only) 43.9 % (42-52); Hemoglobin 14.9 g/dL (14.0-18.0); Immature Granulocytes # (auto) 0.02 K/uL (0.00-0.02); Immature Granulocytes % (auto) 0.3 %; Lymphocytes # (auto) 0.91 K/uL (1.2-3.4); Lymphocytes % (auto) 14.8 %; Mean Corpuscular Hemoglobin 29.7 pg (25-34); Mean Corpuscular Hgb Conc 33.9 g/dL (32-36); Mean Corpuscular Volume 87.5 fL (80-100); Monocytes # (auto) 0.36 K/uL (0.11-0.59); Monocytes % (auto) 5.9 %; Neutrophils # (auto) 4.86 K/uL (1.4-6.5); Platelet Count 121 K/uL (130-400); RDW Coefficient of Variation 13.3 % (11.5-14.5); RDW Standard Deviation 42.6 fL (36.4-46.3); Red Blood Count 5.02 M/uL (4.7-6.1); White Blood Count 6.15 K/uL (4.8-10.8)
--- NOTE | 2021-11-07 18:06 | XRay Report ---
XR chest 1V portable HISTORY: Atypical Chest Pain COMPARISON: Chest 05/18/2014. FINDINGS: There are low lung volumes. The heart remains mildly enlarged. No focal lung consolidations to suggest pneumonia. No evidence for pulmonary edema. No pleural effusions. No pneumothorax. IMPRESSION: No significant change compared to the prior study. No acute process. ACT 112: Negative or not required by law. Electronically signed by: Rm Dewey M.D. 11/07/2021 6:05 PM
[2021-11-07 18:09] LABS: Alanine Aminotransferase 40 (12-78); Albumin Level 3.2 gm/dl (3.4-5.0); Aspartate Aminotransferase 34 U/L (15-37); Blood Urea Nitrogen 18 mg/dl (7-18); Calcium 8.8 mg/dl (8.5-10.1); Carbon Dioxide 27 mmol/L (21-32); Chloride 104 mmol/L (98-107); Creatinine Clr Calc Pharmacy 86.3 ml/min; Est GFR (African American) 76.1 ml/min; Est GFR (Non-African American) 65.7 ml/min; Glucose 159 mg/dl (70-99); Lipase 110 U/L (73-393); Potassium 3.7 mmol/L (3.5-5.1); Sodium 137 mmol/L (136-145)
[2021-11-07 18:14] LABS: Albumin Globulin Ratio 0.8 (0.9-2); Alkaline Phosphatase 54 U/L (45-117); Bilirubin,Total 0.8 mg/dl (0.2-1); Globulin 3.9 gm/dl (2.5-4.0); Total Protein 7.1 gm/dl (6.4-8.2); Troponin I < 0.015 ng/ml (0-0.045)
[2021-11-07] MEDS ORDERED: ACETAMINOPHEN 500 MG TAB PO STA (18:24)
--- NOTE | 2021-11-07 19:06 | History & Physical Report ---
Date of Service November 07, 2021 Assessment & Plan (1) Acute respiratory failure with hypoxia: Plan: Likely secondary to Covid Treatment as detailed below Can use oxygen as needed, currently stable at rest but may require 2 L with activity (2) COVID: Plan: Start Decadron at 6 mg IV daily Start remdesivir as patient is hypoxic with activity As needed albuterol nebs Other symptomatic relief Possible need for O2 as above DVT prophylaxis with low-dose Lovenox PT/OT when improved (3) GERD (gastroesophageal reflux disease): Plan: continue PPI History of Present Illness Chief Complaint: weakness Primary Care Provider: Bushra Rodriguez DO This is a 56-year-old male with past medical history of 6th nerve palsy that presents complaining of significant weakness. Patient is a good historian. Patient states that earlier this week, approximately 5 days ago he started having some symptoms were consistent with his 6th nerve palsy. He notes some vertigo and headache which he has had in the past and did not think much of. Unfortunately, symptoms progressed and he started having worsening generalized weakness. He did not note any shortness of breath but he did have a dry barking cough which were to worsen as well. Symptoms continue to progress and today we became so weak that he felt he could not care for himself and called EMS to bring to the hospital. He was found to be hypoxic into the mid to high 80s and was administered nasal cannula oxygen. The emergency room, he does well when he is sitting still and currently his O2 sat is 94% on room air. Of note, patient is Covid positive here in the emergency room. He is unvaccinated. Allergies Allergy/AdvReac Type Severity Reaction Status Date / Time No Known Allergies Allergy Verified 11/07/21 18:37 Home Medications Medication Instructions Recorded Confirmed Type esomeprazole magnesium 40 mg 40 mg PO [facility] 07/03/19 11/07/21 History capsule,delayed release epinephrine 0.3 mg/0.3 mL 0.3 mg IM DIRECTED PRN 11/16/19 11/07/21 History injection, auto-injector (EpiPen 2-Yovani) escitalopram oxalate 20 mg tablet 10 mg PO QAM 11/07/21 11/07/21 History ketoconazole 2 % topical cream 1 applic TOPICAL QA 11/07/21 11/07/21 History terbinafine HCl 250 mg tablet 250 mg PO [facility] 11/07/21 11/07/21 History Past Med/Surg History Medical History (Updated 11/07/21 @ 19:01 by Nasir Moffett DO) Claustrophobia GERD (gastroesophageal reflux disease) Heart abnormality pt states he "has a hole in his heart" Migraine Tinnitus of both ears Transient ischemic attack (TIA) 2012--no deficits Surgical History History of arthroscopy of left knee History of arthroscopy of right knee History of cholecystectomy History of colonoscopy History of esophagogastroduodenoscopy (EGD) History of tooth extraction History of wisdom tooth extraction Family History Daughter No problems noted. Father Family history of reaction to anesthesia difficulty waking Aunt Family history of diabetes mellitus Family/Other Family history of diabetes mellitus cousins Social History Smoking Status: Never smoker Second Hand Exposure: Yes (parents/grandparents smoked); Hx Alcohol Use: Yes Alcohol type: beer Hx Substance Use: No Preferred Language: Scottish Communication Ability: Effective Policewoman Required: No Beliefs That Will Affect Care: None Current Living Situation: Spouse Current Living Situation Comment: Lives with and 2 kids Feels Safe at Home: Yes Assistive Devices: Glasses Review of Systems Constitutional: + fatigue, + malaise and + weakness; no fever, no chills, no weight loss and no weight gain Eyes: as per Subjective / HPI Respiratory: + cough; no chest congestion, no dyspnea, no dyspnea on exertion and no sputum production Cardiovascular: no chest pain, no orthopnea, no palpitations, no lightheadedness and no edema Gastrointestinal: no abdominal pain, no nausea, no vomiting, no constipation and no diarrhea/loose stools Musculoskeletal: no back pain, no neck pain, no joint pain, no stiffness and no myalgia Integumentary: no rash Neurologic: as per Subjective / HPI; no gait abnormality, no unsteadiness, no falls and no generalized weakness Endocrine: + fatigue; no polydipsia, no polyphagia, no polyuria, no heat intolerance and no deepening of the voice Physical Exam Constitutional: cooperative; no acute distress Neck: trachea midline, no thyromegaly Respiratory: normal respiratory effort Auscultation: lungs clear to auscultation bilaterally; no crackles, no rales, no rhonchi and no wheezes dry cough throughout exam Cardiovascular: Rate/Rhythm: regular rate and regular rhythm Heart Sounds: normal S1 and normal S2 Gastrointestinal (Abdomen): Inspection/Auscultation: abdomen normal to inspection Percussion/Palpation: abdomen soft; abdomen nontender, no guarding, abdomen not rigid and no hepatosplenomegaly Skin: no rashes, warm and dry Results & Data Results & Data ([facility]) Vital Signs (Past 12 Hours) Vital Signs Temp Pulse Resp BP Pulse Ox 11/07/21 18:30 101 H 22 128/87 94 11/07/21 18:00 112 H 22 92 11/07/21 17:38 38.9 C H 112 H 20 186/119 H 91 Laboratory Results Laboratory Results WBC 6.15 K/uL (4.8-10.8) 11/07/21 17:40 RBC 5.02 M/uL (4.7-6.1) 11/07/21 17:40 Hgb 14.9 g/dL (14.0-18.0) 11/07/21 17:40 Hct 43.9 % (42-52) 11/07/21 17:40 MCV 87.5 fL (80-100) 11/07/21 17:40 MCH 29.7 pg (25-34) 11/07/21 17:40 MCHC 33.9 g/dL (32-36) 11/07/21 17:40 RDW Std Deviation 42.6 fL (36.4-46.3) 11/07/21 17:40 RDW Coeff of [place] 13.3 % (11.5-14.5) 11/07/21 17:40 Plt Count 121 K/uL (130-400) L 11/07/21 17:40 MPV 11.0 fL (7.4-10.4) H 11/07/21 17:40 Immature Gran % (Auto) 0.3 % 11/07/21 17:40 Neut % (Auto) 79.0 % 11/07/21 17:40 Lymph % (Auto) 14.8 % 11/07/21 17:40 [place] % (Auto) 5.9 % 11/07/21 17:40 Eos % (Auto) 0.0 % 11/07/21 17:40 Baso % (Auto) 0.0 % 11/07/21 17:40 Neut # (Auto) 4.86 K/uL (1.4-6.5) 11/07/21 17:40 Lymph # (Auto) 0.91 K/uL (1.2-3.4) L 11/07/21 17:40 [place] # (Auto) 0.36 K/uL (0.11-0.59) 11/07/21 17:40 Eos # (Auto) 0.00 K/uL (0-0.5) 11/07/21 17:40 Baso # (Auto) 0.00 K/uL (0-0.2) 11/07/21 17:40 Immature Gran # (Auto) 0.02 K/uL (0.00-0.02) 11/07/21 17:40 Sodium 137 mmol/L (136-145) 11/07/21 17:40 Potassium 3.7 mmol/L (3.5-5.1) 11/07/21 17:40 Chloride 104 mmol/L (98-107) 11/07/21 17:40 Carbon Dioxide 27 mmol/L (21-32) 11/07/21 17:40 Anion Gap 6.0 (3-11) 11/07/21 17:40 BUN 18 mg/dl (7-18) 11/07/21 17:40 Creatinine 1.23 mg/dl (0.6-1.4) 11/07/21 17:40 Est Cr Clr Drug Dosing 86.3 ml/min 11/07/21 17:40 Est GFR ( Amer) 76.1 ml/min 11/07/21 17:40 Est GFR (Non-Af Amer) 65.7 ml/min 11/07/21 17:40 BUN/Creatinine Ratio 15.0 (10-20) 11/07/21 17:40 Glucose 159 mg/dl (70-99) H 11/07/21 17:40 Calcium 8.8 mg/dl (8.5-10.1) 11/07/21 17:40 Total Bilirubin 0.8 mg/dl (0.2-1) 11/07/21 17:40 AST 34 U/L (15-37) 11/07/21 17:40 ALT 40 (12-78) 11/07/21 17:40 Alkaline Phosphatase 54 U/L (45-117) 11/07/21 17:40 Troponin I < 0.015 ng/ml (0-0.045) 11/07/21 17:40 Total Protein 7.1 gm/dl (6.4-8.2) 11/07/21 17:40 Albumin 3.2 gm/dl (3.4-5.0) L 11/07/21 17:40 Globulin 3.9 gm/dl (2.5-4.0) 11/07/21 17:40 Albumin/Globulin Ratio 0.8 (0.9-2) L 11/07/21 17:40 Lipase 110 U/L (73-393) 11/07/21 17:40 SARS-CoV-2, RNA, NAAT POSITIVE (NEGATIVE) A* 11/07/21 17:38 Impressions Chest X-Ray 11/07/21 17:37 XR chest 1V portable HISTORY: Atypical Chest Pain COMPARISON: Chest 05/18/2014. FINDINGS: There are low lung volumes. The heart remains mildly enlarged. No focal lung consolidations to suggest pneumonia. No evidence for pulmonary edema. No pleural effusions. No pneumothorax. IMPRESSION: No significant change compared to the prior study. No acute process. ACT 112: Negative or not required by law. Electronically signed by: Rm Dewey M.D. 11/07/2021 6:05 PM PG Care Time/CCT Total # of Minutes Spent Total Time Spent with Patient: Total time spent is greater than 50% in coordination of care (as documented) at patient's floor/unit and/or counseling patient: Coding Level of Care Code 90271 Initial Inpt Care Lvl 3 Diagnoses Acute respiratory failure with hypoxia J96.01 COVID U07.1 GERD (gastroesophageal reflux disease) K21.9
[2021-11-07] MEDS ORDERED: REMDESIVIR 200 MG in SODIUM CHLORIDE 0.9% 210 ML IV STA (19:07)
[2021-11-07] MEDS ORDERED: dexAMETHasone 6 MG in SYRINGE 0 ML IV ONE (19:11)
[2021-11-07] MEDS ORDERED: DEXAMETHASONE SOD INJ 4 MG/ML VIAL ONE (20:25)
[2021-11-07] MEDS: SODIUM CHLORIDE 0.9% 10ML FLUSH IV SCH (22:15)
[2021-11-07] MEDS ORDERED: ALBUTEROL 0.5% NEB SOLN 2.5 MG/0.5 ML VIAL NEB PRN (22:50)
[2021-11-07] MEDS ORDERED: ONDANSETRON INJ 2 MG/ML 2 ML VIAL IV PRN (22:50)
[2021-11-07] MEDS ORDERED: ACETAMINOPHEN 325 MG TAB PO PRN (22:50)
[2021-11-07] MEDS: ENOXAPARIN INJ 40 MG/0.4 ML SYR SQ SCH (23:09)
[2021-11-08 07:03] LABS: Basophils # (auto) 0.01 K/uL (0-0.2); Basophils % (auto) 0.2 %; Hematocrit (blood only) 38.1 % (42-52); Hemoglobin 12.8 g/dL (14.0-18.0); Immature Granulocytes # (auto) 0.01 K/uL (0.00-0.02); Immature Granulocytes % (auto) 0.2 %; Lymphocytes % (auto) 14.5 %; Mean Corpuscular Hemoglobin 29.2 pg (25-34); Mean Corpuscular Hgb Conc 33.6 g/dL (32-36); Mean Corpuscular Volume 86.8 fL (80-100); Mean Platelet Volume 10.1 fL (7.4-10.4); Monocytes # (auto) 0.43 K/uL (0.11-0.59); Monocytes % (auto) 7.8 %; Neutrophils # (auto) 4.25 K/uL (1.4-6.5); Neutrophils % (auto) 77.3 %; Platelet Count 169 K/uL (130-400); RDW Standard Deviation 41.9 fL (36.4-46.3); Red Blood Count 4.39 M/uL (4.7-6.1)
[2021-11-08 08:04] LABS: BUN Creatinine Ratio 20.5 (10-20); Bilirubin,Total 0.6 mg/dl (0.2-1); Calcium 8.4 mg/dl (8.5-10.1); Creatinine Clr Calc Pharmacy 133.1 ml/min; Est GFR (African American) 116.6 ml/min; Est GFR (Non-African American) 100.6 ml/min; Magnesium 2.6 mg/dl (1.8-2.4); Total Protein 6.1 gm/dl (6.4-8.2)
[2021-11-08 08:31] LABS: Albumin Globulin Ratio 0.8 (0.9-2); Albumin Level 2.7 gm/dl (3.4-5.0); Globulin 3.4 gm/dl (2.5-4.0)
[2021-11-08] MEDS: dexAMETHasone 6 MG in SYRINGE 0 ML IV SCH (10:44)
[2021-11-08] MEDS: ENOXAPARIN INJ 40 MG/0.4 ML SYR SQ SCH ×2 (10:45→20:35)
[2021-11-08] MEDS: ESCITALOPRAM OXALATE 10 MG TAB PO SCH (10:46)
[2021-11-08] MEDS: PANTOprazole 40 MG TAB PO SCH (10:46)
--- NOTE | 2021-11-08 13:47 | Electrocardiogram Report ---
Test Reason : Blood Pressure : / mmHG Vent. Rate : 107 BPM Atrial Rate : 107 BPM P-R Int : 158 ms QRS Dur : 090 ms QT Int : 312 ms P-R-T Axes : 017 014 040 degrees QTc Int : 417 ms Sinus tachycardia Nonspecific T wave abnormality Abnormal ECG When compared with ECG of 16-NOV-2019 17:15, Vent. rate has increased BY 38 BPM Confirmed by Nikolai Beckham ([id number]) on 11/08/2021 1:46:27 PM Referred By: REFERRED SELF Confirmed By:Nikolai Beckham
[2021-11-08] MEDS: BENZONATATE 100 MG CAPSULE PO SCH ×2 (13:48→20:30)
[2021-11-08] MEDS ORDERED: ESCITALOPRAM OXALATE 10 MG TAB PO SCH (16:45)
[2021-11-08] MEDS ORDERED: REMDESIVIR 100 MG in SODIUM CHLORIDE 0.9% 230 ML IV SCH (20:00)
[2021-11-08] MEDS ORDERED: COUGH DROP (SUGAR FREE) LOZ 24 LOZ/1 BOX BUCCAL STA (20:55)
[2021-11-08] MEDS ORDERED: LORazepam 0.5 MG TAB PO PRN (20:56)
--- NOTE | 2021-11-08 21:00 | Hospitalist Progress Note ---
Date of Service November 08, 2021 Assessment & Plan (1) Acute respiratory failure with hypoxia: Plan: Related to Covid (2) COVID: Plan: About day 6-7 of illness. Continue Decadron. Continue remdesivir for nowfollow LFTs. Supportive care/supplemental oxygenfollow into tomorrow to make sure he does not worsen further, as he is in the window of time where sometimes people do rapidly worsen. If he does not, likely set up home oxygen and discharged to home. (3) GERD (gastroesophageal reflux disease): Plan: continue PPI (4) Hematuria: Plan: Uncertain etiologyorder UA and culture, although minimal infectious symptoms. CT scan reviewed from July, no stones then, it is possibly a former one recently but less likely given there were none prior. Likely to need outpatient evaluation including cystoscopy. Right now continue to follow. (5) DVT prophylaxis: Plan: Given the significant thrombogenic state with Covid, and the fact that he is not showing any significant blood loss with his hematuriarisk/benefit favors continuing pharmacologic prophylaxis for now (6) Discharge planning issues: Plan: Maintain in the hospital for now, once it is clear he is at his plateau of illness, not rapidly worsening, then anticipate home on home oxygen Admission and Anticipated Discharge Date Admission Date: November 07, 2021 Subjective Ongoing coughworse whenever he is talking or walking to the bathroom. No significant shortness of breath in betweenbut does note that he feels fairly short of breath whenever he is exerting. Also has hematuria just started in the last day or soprior to admission, mild dysuria, but nothing significant. Review of Systems Review of Systems: All systems reviewed & are unremarkable except as noted in HPI & below Physical Exam Physical Exam: Awake and alert pleasant no distress. HEENT normocephalic atraumatic mucous membranes moist. Breathing unlabored no accessory muscle use good effortlungs are overall clear but quiet no rales rhonchi or wheezes no accessory muscle use Skin shows no rashes no pallor or icterus. Neuro without focal deficits. Abdomen soft nondistended nontender. Extremities without cyanosis clubbing or edema. Results & Data Results & Data ([facility]) Vital Signs (Past 12 Hours) Vital Signs Temp Pulse Resp BP Pulse Ox 11/08/21 14:49 98.8 F 97 H 18 116/80 90 11/08/21 11:00 84 18 108/80 PG Care Time/CCT Total # of Minutes Spent Total Time Spent with Patient: Total time spent is greater than 50% in coordination of care (as documented) at patient's floor/unit and/or counseling patient: Coding Level of Care Code 60016 Subseq Hosp Care Lvl 3 Diagnoses Acute respiratory failure with hypoxia J96.01 COVID U07.1 GERD (gastroesophageal reflux disease) K21.9 Hematuria R31.9 DVT prophylaxis Z29.9 Discharge planning issues Z02.9
[2021-11-08] MEDS: SODIUM CHLORIDE 0.9% 10ML FLUSH IV SCH (21:04)
[2021-11-08 21:38] LABS: Appearance Urine Clear (Clear); Bacteria Urine Automated Negative (Negative); Bilirubin Urine Negative (Negative); Blood Urine 3+ (Negative); Color Urine Dark Yellow; Epithelial Cell Urine Auto >30 /lpf (0-5); Glucose Urine UA Negative (Negative); Ketones Urine Negative (Negative); Leukocyte Esterase Urine Trace (Negative); Nitrite Urine Negative (Negative); Protein Urine Trace (Negative); RBC Urine Automated >30 /hpf (0-4); Specific Gravity Urine 1.024 (1.000-1.030); Urobilinogen Urine Negative (Negative); pH Urine 5.5 (4.5-7.5)
[2021-11-09] MEDS: dexAMETHasone 6 MG in SYRINGE 0 ML IV SCH (08:04)
[2021-11-09] MEDS: PANTOprazole 40 MG TAB PO SCH (08:04)
[2021-11-09] MEDS: ENOXAPARIN INJ 40 MG/0.4 ML SYR SQ SCH (08:04)
[2021-11-09] MEDS: BENZONATATE 100 MG CAPSULE PO SCH ×2 (08:04→13:51)
[2021-11-09] MEDS: ESCITALOPRAM OXALATE 10 MG TAB PO SCH (08:04)
[2021-11-09 09:45] LABS: Basophils # (auto) 0.01 K/uL (0-0.2); Basophils % (auto) 0.1 %; Hematocrit (blood only) 40.5 % (42-52); Hemoglobin 13.5 g/dL (14.0-18.0); Immature Granulocytes # (auto) 0.02 K/uL (0.00-0.02); Immature Granulocytes % (auto) 0.2 %; Lymphocytes # (auto) 1.07 K/uL (1.2-3.4); Lymphocytes % (auto) 12.9 %; Mean Corpuscular Hemoglobin 29.3 pg (25-34); Mean Corpuscular Hgb Conc 33.3 g/dL (32-36); Mean Platelet Volume 9.8 fL (7.4-10.4); Monocytes # (auto) 0.72 K/uL (0.11-0.59); Monocytes % (auto) 8.7 %; Neutrophils # (auto) 6.45 K/uL (1.4-6.5); Neutrophils % (auto) 78.1 %; Platelet Count 220 K/uL (130-400); RDW Standard Deviation 42.2 fL (36.4-46.3); White Blood Count 8.27 K/uL (4.8-10.8)
[2021-11-09 10:24] LABS: Calcium 8.8 mg/dl (8.5-10.1); Est GFR (African American) 109.6 ml/min; Est GFR (Non-African American) 94.5 ml/min; Potassium 3.9 mmol/L (3.5-5.1)
[2021-11-09 10:27] LABS: Albumin Globulin Ratio 0.8 (0.9-2); Globulin 3.5 gm/dl (2.5-4.0); Total Protein 6.5 gm/dl (6.4-8.2)
[2021-11-09 10:31] LABS: Bilirubin,Total 0.7 mg/dl (0.2-1)
--- NOTE | 2021-11-09 18:27 | Discharge Summary ---
Date of Service November 09, 2021 Admission HPI Per Admitting Provider This is a 56-year-old male with past medical history of 6th nerve palsy that presents complaining of significant weakness. Patient is a good historian. Patient states that earlier this week, approximately 5 days ago he started having some symptoms were consistent with his 6th nerve palsy. He notes some vertigo and headache which he has had in the past and did not think much of. Unfortunately, symptoms progressed and he started having worsening generalized weakness. He did not note any shortness of breath but he did have a dry barking cough which were to worsen as well. Symptoms continue to progress and today we became so weak that he felt he could not care for himself and called EMS to bring to the hospital. He was found to be hypoxic into the mid to high 80s and was administered nasal cannula oxygen. The emergency room, he does well when he is sitting still and currently his O2 sat is 94% on room air. Of note, patient is Covid positive here in the emergency room. He is unvaccinated. Principal Diagnosis covid Discharge Exam gen aaox3 pleasant nad heent nc at mmm lungs overall fairly clear does have asymmetric coarseness R>L no rhonchi no wheeze. no accessory muscles no conversational dyspnea. neuro shows cn 2-12 grossly intact gross motor/sensory intact. skin no rashes no pallor or icterus Discharge Data Allergies Allergy/AdvReac Type Severity Reaction Status Date / Time No Known Allergies Allergy Verified 11/07/21 18:37 Consultations 11/07/21 18:31 ED Decision to Admit Stat Hospital Course (1) Acute respiratory failure with hypoxia: Related to Covid - improved to where he's safe to go home - thought he would need supplemental O2 but in 6min walk test actually dropped no lower than 90% (2) COVID: About day 7-8 of illness. Appears to have plateaued. appears safe for home - see discharge instructions - monitor SpO2 and take it easy but safe for home. decadron x 10 days total (unless improves more rapidly - in which case could potentially stop sooner); PCP phone f/u ~3 days sooner prn. (3) GERD (gastroesophageal reflux disease): continue PPI (4) Hematuria: Uncertain etiologyorder UA confirms, culture not showing growth and no real infectious symptoms anyway. CT scan reviewed from July, no stones then, it is possibly a former one recently but less likely given there were none prior. Likely to need outpatient evaluation including cystoscopy - asked ELIAS reyna to facilitate this (5) DVT prophylaxis: Given the significant thrombogenic state with Covid, and the fact that he is not showing any significant blood loss with his hematuriarisk/benefit favored pharmacologic prophylaxis while admitted. no indication for dvt proph after dc, however (6) Discharge planning issues: safe for home, doesn't need O2 as a nice surprise. PCP phone f/u mid week. Total Time Total Time Spent Total Time Spent (In Minutes): >30 Discharge Plan Discharge Items Patient Disposition: Home - Self-Care Reason For Visit: COVID Discharge Diagnosis: covid (see below) Activity: Per Instructions section Activity Comment: take it easy - see below as far as pulse ox readings Non-emergency contact: Primary Care Provider Call non-emergency contact if: you have any medication questions, your symptoms worsen and your temperature is above 101 Follow-up/Referrals: Bushra Rodriguez, [Primary Care Provider] - Diet: Regular Addtl Attending Provider Instructions: Covid -Unfortunately you are reasonably sick with Covid, but fortunately everything is looking that this is "about as bad as it will get"and fortunately things are safe enough to get you home -As a nice surprise, when the respiratory therapist walked you, your pulse ox never dropped below 90%which means you actually do not need oxygen at home after all. -We do want you taking it easywhen you walk/exert at all, your body does require more oxygen than whenever you are at restand until you recover from Covid, it will feel like things are a lot more hard work than they should be. I would recommend that your crop picker a pulse oximeter (available [id number] at pharmacies) so that you can follow your oxygen numbers at home. If you are doing anything, follow your numbersif you see them drop below 90 stop and rest. If numbers do not improve to above 90 after a few minutes of rest, that would be worth coming back to the hospital. Similarly if you are resting already and see numbers below 90that would also be worth coming back. That said, I highly doubt any of this will happen, given your clinical stability over the last 2 days. -As we have discussed, unfortunately Covid usually takes quite a while to recoverit would not surprise me at all if it takes a month for you to show slow progress back to feeling pretty much yourself again -To help in your recovery, we will finish out 10 days of dexamethasonethis is a steroid that helps quiet your immune system response. As we discussed, most of the time whenever somebody gets catastrophically sick with Covid it is because their immune system "brings a gun to a knife fight" whenever it is coming in to clear out the virusthe steroids help make it more of a "knife to in a fight". It is just a 1 pill once a dayfor 8 more daysnext dose will be tomorrow -I would ask that you touch base with Dr. Rodriguez around mid weekmostly because if you are doing better faster than expected, she may be able to direct you on stopping the steroids a little bit sooner. -For the coughwe will send a prescription for the Tessalonyou can take this up to 3 times a day if you find it is helping with the cough. As we discussed, the cough itself is coming because inflammation in your lungs is "tripping" the nerves that are designed to make you cough if anything was getting into your lungs. As the inflammation from the Covid starts to down, the cough should get less and less -I would also recommend using saline nasal spray multiple times a daywhile this is a very simple intervention, there is actually a reasonable body of data that suggests that fairly regular saline nasal irrigation actually not only lessens symptoms, but possibly lessens severity with Covid -Nutrition and hydration will be very important in your recovery. As we have been discussing, with impaired sense of taste and smell, and with the natural decline in hunger and thirst that people usually feel with any pneumonia, staying nourished and hydrated will be more of a "exercise in accounting" than placating thirst and hunger. -I would definitely recommend keeping track of what you eat and drinkwe know with humans if we estimate what we have taken in, we are usually way off. -Staying hydrated: I would recommend an absolute minimum of 60 ounces of fluid a day, ideally more like 80 -Staying nourished: Doing the math, for your age/height/weight you calculate to need about 2100 eliud a day. As we were discussing, this might be difficult to consume just with foodand that is where things like protein shakes can be helpfulas we discussed, a regular [id number] boost has about 250 eliud and 8 ounces, the boost plus has about 350, and online you can get a boost "very high-calorie" that has about 500 eliud per 8 ounces. If you are struggling to get in enough calories/food, you can always use these to help increase your intake Hematuria (Peeing blood) -The urinalysis definitely did show a significant amount of blood. That said, there was nothing that really looks like a kidney stone was the culprit, nothing that really looks like infection was the culprit. Urine culture will be "cooking" in the microbiology laband of course if it shows anything significant we will call in an antibiotic. However, it really looks like the next step in evaluating the blood in your urine will be to get you in with a urologist, and they will likely need to do a scope to take a look around (as we discussed this is not nearly as terrible as it soundsmost people just find it "weird"). -I have asked our nurse navigator to help set this in motion, to speed up the process for you. Pending Studies at Discharge: Yes (urine culture) Stand-Alone Forms: My [facility], Smoking Cessation Medications and DC Order Prescriptions: New benzonatate 100 mg Capsule 100 mg PO TID Qty: 30 RF: 0 dexamethasone [Decadron] 6 mg tablet 6 mg PO DAILY Qty: 8 RF: 0 Continued epinephrine [EpiPen 2-Yovani] 0.3 mg/0.3 mL auto-injector 0.3 mg IM DIRECTED PRN (Reason: Anaphylaxis) RF: 0 esomeprazole magnesium 40 mg capsule,delayed release(DR/EC) 40 mg PO QAM RF: 0 terbinafine HCl 250 mg tablet 250 mg PO QAM RF: 0 ketoconazole 2 % cream 1 applic TOPICAL QAM RF: 0 escitalopram oxalate 20 mg tablet 10 mg PO QAM RF: 0 Discharge Orders: Discharge Order (Routine); Ordered 11/09/21 Ordered By: Darek Mena Admission Data Admit Date/Time: 11/07/21 19:07 Attending Provider: Darek Mena Admit Provider: Nasir Moffett Primary Care Provider: Bushra Rodriguez Other Providers: Nasir Moffett Other Interventions: Discharge Summary Assessment (RN) Last Done: 11/09/21 14:35 Coding Level of Care Code D/C DAY MANAGEMENT >30 MINS Diagnoses Acute respiratory failure with hypoxia J96.01 COVID U07.1 GERD (gastroesophageal reflux disease) K21.9 Hematuria R31.9 DVT prophylaxis Z29.9 Discharge planning issues Z02.9
== END 2021-11-09 16:41 | disposition home or self-care (01) | DRG 177 ==
LOC: ED 17:31 → 2W 19:07 → SUATTDRO 19:07 → 2W 21:18